=== PATIENT | male | born 1990 | race Hispanic/Latino ===

== ENCOUNTER 2023-12-11 16:28 | Emergency (ER) | payer SELFPAY ==
[~2023-12-11 16:28] MED LIST: Iopamidol 370 76% 100 ML VIAL ONE
[2023-12-11] MEDS ORDERED: Ondansetron PF 4 MG/2 ML Vial ONE (17:29)
[2023-12-11] MEDS ORDERED: Ketorolac Tromethamine 30 MG (1 mL) VIAL ONE (17:29)
[2023-12-11 17:52] LABS: #Basophils 0.03 10x3/uL (0.0-0.2); #Eosinophils 0.04 10x3/uL (0.0-0.5); #Monocytes 1.07 10x3/uL (0.0-1.1); #Neutrophils 13.68 10x3/uL (1.5-8.4); %Basophils 0.2 % (0.0-2.0); %Eosinophils 0.2 % (0.0-6.0); %Lymphocytes 7.8 % (18.0-47.0); %Monocytes 6.6 % (0.0-10.0); %Neutrophils 84.6 % (40.0-75.0); Hematocrit 47.1 % (38.8-50.0); Hemoglobin 15.8 g/dL (13.5-17.5); Mean Corpuscular HGB CONC 33.5 g/dL (32.0-36.0); Mean Corpuscular Hemoglobin 26.7 pg (27.0-33.0); Mean Corpuscular Volume 79.7 fL (81.2-95.1); Mean Platelet Volume 11.1 fL (7.4-10.4); Platelet Count 221 10x3/uL (150-450); Red Blood Cell (RBC) Count 5.91 10x6/uL (4.32-5.72); White Blood Cell (WBC) Count 16.2 10x3/uL (3.5-10.5)
[2023-12-11 17:59] LABS: Bilirubin Neg (Negative); Blood, Urine 10 (Negative); Clarity Clear (Clear); Glucose, Urine (Dipstick) Normal (Negative); Ketone, Urine Negative (Negative); Leukocyte Negative (Negative); Nitrite Negative (Negative); Protein, Urine (Dipstick) Negative (Neg-Trace); Urobilinogen Normal mg/dL (Less than 2)
[2023-12-11 18:00] LABS: ALT (SGPT) 88 U/L (8-55); AST (SGOT) 43 U/L (5-34); Albumin 4.5 g/dL (3.5-5.0); Alkaline Phosphatase 94 U/L (40-110); Anion Gap 15 mmol/L (10-20); BUN (Urea Nitrogen) 16 mg/dL (8.9-20.6); Bilirubin, Total 0.8 mg/dL (0.2-1.2); Calc. Creatinine Clearance 0 mL/min (70-130); Calcium 10.1 mg/dL (7.8-10.44); Carbon Dioxide 24 mmol/L (22-29); Chloride 103 mmol/L (98-107); Estimated GFR 74; Globulin 3.5 g/dL (2.4-3.5); Glucose 114 mg/dL (70-105); Lipase 14 U/L (8-78); Potassium 4.1 mmol/L (3.5-5.1); Sodium 138 mmol/L (136-145)
[2023-12-11] MEDS ORDERED: Piperacillin/Tazobactam 4.5 GM VIAL ONE (18:10)
[2023-12-11 18:12] LABS: CAUTI Indications for Culture Pelvic or flank pain; RBC/HPF 0-3 HPF (0-3); Squamous Epithelial 0-3 HPF (0-3); WBC/HPF None Seen HPF (0-3)
[2023-12-11 18:13] LABS: Bacteria/HPF Rare-Few HPF (None Seen); Urine Culture Reflex No No
[2023-12-11] MEDS ORDERED: Acetaminophen 500 MG TAB ONE (19:07)
== END 2023-12-11 21:11 | disposition home or self-care (01) ==
LOC: CSHERS 16:28
DX: R11.2 Nausea with vomiting, unspecified (principal); R19.7 Diarrhea, unspecified; D72.829 Elevated white blood cell count, unspecified
CPT/HCPCS: 36415; 71045; 74177; 80053; 81001; 83605; 83690; 85025; 87040; 87428; 96361; 96365; 96375; J1885; J2405; J2543; Q9967